=== PATIENT | female | born 1980 | race Caucasian/White ===

== ENCOUNTER 2024-08-08 12:08 | Outpatient (REF) | payer OTHER, SELFPAY ==
[2024-08-08 12:55] VITALS: BP 140/87; BP_SYST 85
[2024-08-08 13:09] LABS: % Basophils 0.8 % (0-2); % Eosinophils 2.3 % (0-6); % Immature Granulocytes 0.3 % (0-0.5); % Lymphocytes 30.2 % (20.5-51.1); % Monocytes 6.6 % (1.7-9.3); % Neutrophils 59.8 % (42.2-75.2); Absolute Basophils 0.1 10^3/uL (0-0.2); Absolute Eosinophils 0.2 10^3/uL (0-0.7); Absolute Monocytes 0.7 10^3/uL (0.1-0.6); Absolute Neutrophils 5.9 10^3/uL (1.4-6.5); Hematocrit 42.8 % (37.0-47.0); Hemoglobin 14.7 g/dL (12.0-16.0); Mean Corp Hgb Conc. 34.3 g/dL (33.0-37.0); Mean Corpuscular Hgb 29.6 pg (27.0-31.0); Mean Corpuscular Volume 86.1 fL (81.0-99.0); Mean Platelet Volume 11.9 fL (7.4-10.4); Nucleated Red Blood Cells % 0 %; Platelet Count 250 10^3/uL (130-400); Red Blood Cell Count 4.97 10^6/uL (4.20-5.40); Red Cell Dist. Width 12.1 % (11.5-14.5); White Blood Cell Count 9.9 10^3/uL (4.8-10.8)
[2024-08-08 13:17] LABS: INR 0.97; PT 13.2 Sec (11.4-14.6)
[2024-08-08 13:28] LABS: Erythrocyte Sed Rate 16 mm/hour (0-20)
[2024-08-08 13:55] VITALS: BP 146/78
[2024-08-08 14:00] VITALS: BP 130/80
[2024-08-08 14:16] LABS: ALT (SGPT) 21 U/L (0-35); AST (SGOT) 17 U/L (14-36); Albumin 4.3 g/dl (3.5-5.0); Alkaline Phosphatase 85 U/L (38-126); Blood Urea Nitrogen 8 mg/dl (7-17); Calcium 9.8 mg/dl (8.4-10.2); Carbon Dioxide 28 mmol/L (22-30); Chloride 107 mmol/L (98-107); Glucose 86 mg/dl (70-99); Potassium 4.1 mmol/L (3.5-5.1); Sodium 138 mmol/L (135-145); Total Bilirubin 0.5 mg/dl (0.2-1.3); eGFR > 60.00
[2024-08-08 14:38] VITALS: BP 131/94
[2024-08-08 15:27] LABS: Spinal Fluid Glucose 51 mg/dl (40-70); Spinal Fluid Protein 82 mg/dl (12-60)
[2024-08-08 15:36] VITALS: BP 118/92
[2024-08-08 15:41] LABS: CSF Color Colorless; CSF Tube # 4; CSF Tube # Clarity Clear
[2024-08-08 15:42] LABS: Red Cell Count/CSF 12 mm^3; White Blood Cell Count/CSF 5 mm^3 (0-5)
[2024-08-08 15:43] LABS: CSF Clarity Clear; CSF Color Colorless; CSF Tube # 1; Red Cell Count/CSF 284 mm^3
[2024-08-08 15:46] LABS: White Cell Count/CSF 12 mm^3 (0-5)
[2024-08-08 17:48] LABS: Spinal Fluid Granulocytes 0 %; Spinal Fluid Lymphocytes 60 %; Spinal Fluid Macrophages 40 %
== END 2024-08-08 16:05 | disposition home or self-care (01) ==
LOC: RADI 12:08
PROVIDERS: ATTENDING PHYSICIAN Specialist; FAMILY PHYSICIAN Family Medicine
DX: M79.10 Myalgia, unspecified site (principal); R20.0 Anesthesia of skin; R90.89 Other abnormal findings on diagnostic imaging of central nervous system
CPT/HCPCS: 36415; 62328; 80053; 82040; 82042; 82164; 82784; 82945; 83873; 83916; 84157; 85025; 85610; 85652; 86140; 86592; 86618; 87476; 89051